=== PATIENT | female | born 1960 | race African-American/Black ===

== ENCOUNTER 2022-09-24 21:31 | Emergency (ER) | payer OTHER ==
[~2022-09-24] VITALS: Ht 157.5 cm; Wt 67.0 kg
[2022-09-24 21:53] VITALS: BP 176/89
[2022-09-24] MEDS ORDERED: HYDROCODONE/ACETAMINOPHEN 5/325MG TABLET PO ONE (22:15)
== END 2022-09-25 00:23 | disposition home or self-care (01) ==
LOC: ER 21:31
DX: M79.601 Pain in right arm (principal); I10 Essential (primary) hypertension; W06.XXXA Fall from bed, initial encounter; Y93.89 Activity, other specified; Y92.89 Other specified places as the place of occurrence of the external cause; Y99.8 Other external cause status
CPT/HCPCS: 73060; 73130; 99284

== ENCOUNTER 2023-06-17 21:05 | Emergency (ER) | payer OTHER ==
[~2023-06-17] VITALS: Ht 162.6 cm; Wt 149.0 kg
[2023-06-17 21:53] VITALS: BP 147/80; RESP 15; O2SAT 98
[2023-06-17 21:59] VITALS: PULSE 83
[2023-06-17 22:30] VITALS: TEMP 98.5
[2023-06-17] MEDS ORDERED: ACETAMINOPHEN 325MG TABLET PO ONE (22:30)
[2023-06-18] MEDS ORDERED: NAP5EC MT (00:10)
== END 2023-06-18 01:07 | disposition home or self-care (01) ==
LOC: ER 21:05
DX: S93.401A Sprain of unspecified ligament of right ankle, initial encounter (principal); W18.39XA Other fall on same level, initial encounter; Y93.89 Activity, other specified; Y92.89 Other specified places as the place of occurrence of the external cause; Y99.8 Other external cause status
CPT/HCPCS: 73562; 73590; 73610; 73630; 99284; Z7610